=== PATIENT | male | born 1950 | race Native Hawaiian/Other Pacific Islander ===

== ENCOUNTER 2017-04-03 10:39 | Outpatient (CLI) | payer OTHER ==
[~2017-04-03 10:39] MED LIST: ADULT ASA81 MG OR; ALBU90AE13 INH; ALLO300T23 PO; AMITRIPTYLIN50 MG PO; ATEN25TA21 PO; CLARITIN10 MG PO; ENALAPRIL10 MG PO; FLUTICASONE50 MCG; MELOXICAM7.5 MG OR; METF500T PO; OMEPRAZOLE20 M1 OR; PROAIR HFA IN; SUCR1SUS PO
== END 2017-04-03 19:23 | disposition home or self-care (01) ==
LOC: RAD 10:39
DX: M54.12 Radiculopathy, cervical region (principal)

== ENCOUNTER 2020-12-10 14:18 | Outpatient (CLI) | payer OTHER | END 2020-12-10 19:39 | disposition home or self-care (01) | LOC: RAD 14:18 | PROVIDERS: ATTEND Nurse Practitioner Family | DX: M54.2 Cervicalgia (principal) ==

== ENCOUNTER 2020-12-17 16:09 | Emergency (ER) | payer OTHER ==
[~2020-12-17] VITALS: Ht 172.7 cm; Wt 108.9 kg
[2020-12-17 16:42] LABS: PLATELET COUNT 245 K/uL (142-355)
[2020-12-17 16:47] LABS: POTASSIUM 4.7 mmol/L (3.6-5.2)
[2020-12-17 19:00] VITALS: BP 165/92; TEMP 97.7
== END 2020-12-17 19:00 | disposition home or self-care (01) ==
LOC: ED 16:09
PROVIDERS: Emergency Medicine
DX: E86.0 Dehydration (principal)
CPT/HCPCS: 36415; 80053; 84484; 85027; 93005; 96360; 99284

== ENCOUNTER 2021-03-19 12:32 | Outpatient (CLI) | payer OTHER | END 2021-03-19 18:55 | disposition home or self-care (01) | LOC: LAB 12:32 | PROVIDERS: ATTEND Nurse Practitioner Family | DX: D64.89 Other specified anemias (principal) | CPT/HCPCS: 82272 ==

== ENCOUNTER 2021-05-07 09:35 | Outpatient (CLI) | payer OTHER | END 2021-05-07 18:56 | disposition home or self-care (01) | LOC: RAD 09:35 | PROVIDERS: ATTEND Nurse Practitioner Family | DX: E78.49 Other hyperlipidemia (principal); I10 Essential (primary) hypertension; E11.9 Type 2 diabetes mellitus without complications; K21.9 Gastro-esophageal reflux disease without esophagitis; R06.02 Shortness of breath ==

== ENCOUNTER 2021-08-12 12:46 | Outpatient (CLI) | payer OTHER | END 2021-08-12 19:02 | disposition home or self-care (01) | LOC: RAD 12:46 | PROVIDERS: ATTEND Nurse Practitioner Family | DX: M25.562 Pain in left knee (principal) ==

== ENCOUNTER 2022-03-20 13:17 | Outpatient (CLI) | payer OTHER | END 2022-03-20 19:00 | disposition home or self-care (01) | LOC: RAD 13:17 | PROVIDERS: ATTEND Internal Medicine | DX: R19.5 Other fecal abnormalities (principal); K57.30 Diverticulosis of large intestine without perforation or abscess without bleeding; Z53.8 Procedure and treatment not carried out for other reasons ==

== ENCOUNTER 2022-07-16 18:35 | Emergency (ER) | payer OTHER ==
[~2022-07-16] VITALS: Ht 172.7 cm; Wt 97.1 kg
[2022-07-16 18:51] VITALS: BP 165/92; TEMP 98.6
== END 2022-07-16 19:50 | disposition home or self-care (01) ==
LOC: ED 18:35
DX: Z53.29 Procedure and treatment not carried out because of patient's decision for other reasons (principal)
CPT/HCPCS: 99282